=== PATIENT | male | born 1955 | race Caucasian/White ===

== ENCOUNTER 2018-02-16 09:17 | Inpatient (IN) | payer OTHER ==
[2018-02-16 09:56] VITALS: BMI 32.9
--- NOTE | 2018-02-16 13:52 | HP ---
CIWA Score - CIWA Score Nausea/Vomitin Muscle Tremors: 3 Anxiety: 3 Agitation: 3 Paroxysmal Sweats: 2 Orientation: 0-Oriented Tacttile Disturbances: 1-Very Mild Itch/Numbness Auditory Disturbances: 1-Very Mild Visual Disturbances: 0-None Headache: 2-Mild CIWA-Ar Total Score: 18 Admission ROS BHS - HPI Chief Complaint: i need help to stop drinking alcohol Allergies/Adverse Reactions: Allergies Allergy/AdvReac Type Severity Reaction Status Date / Time latex Allergy Severe Rash Verified 02/16/18 11:10 History of Present Illness: this 62 years old male with alcohol dependence,seeking detox,withdrawal symptom, [facility] amb[facility] with cane for 2 months neuropathy longest period of sobriety 9 months nicotine dependence - Ebola screening Have you traveled outside of the country in the last 21 days: No Have you had contact with anyone from an Ebola affected area: No Have you been sick,other than usual withdrawal symptoms: No Do you have a fever: No - Review of Systems Constitutional: Diaphoresis, Loss of Appetite, Malaise, Night Sweats, Changes in sleep, Weakness, Unintentional Wgt. Loss EENT: reports: Nose Congestion Respiratory: reports: No Symptoms reported Cardiac: reports: No Symptoms Reported GI: reports: Diarrhea, Nausea, Vomiting, Abdominal cramping : reports: No Symptoms Reported Musculoskeletal: reports: Back Pain, Muscle Pain Integumentary: reports: Dryness Neuro: reports: Headache, Tremors Endocrine: reports: No Symptoms Reported Hematology: reports: No Symptoms Reported Psychiatric: reports: Agitated, Anxious, Depressed Patient History - Patient Medical History Hx Asthma: No Hx Chronic Obstructive Pulmonary Disease (COPD): No Hx Cancer: No Hx Cardiac Disorders: No Hx Congestive Heart Failure: No Hx Hypertension: No Hx Hypercholesterolemia: No Hx Pacemaker: No HX Cerebrovascular Accident: No Hx Seizures: No Hx Dementia: No Hx Diabetes: No Hx Gastrointestinal Disorders: No Hx Liver Disease: No Hx Genitourinary Disorders: No Hx Sexually Transmitted Disorders: No Hx Renal Disease (ESRD): No Hx Thyroid Disease: No Hx Human Immunodeficiency Virus (HIV): No (last 2017 negative) Hx Hepatitis C: No Hx Depression: Yes Hx Suicide Attempt: No Hx Schizophrenia: No Other Medical History: insomnia,no homicidal,no suicidal - Patient Surgical History Past Surgical History: Yes Hx Neurologic Surgery: No Hx Cataract Extraction: No Hx Cardiac Surgery: No Hx Lung Surgery: No Hx Breast Surgery: No Hx Breast Biopsy: No Hx Abdominal Surgery: No Hx Appendectomy: No Hx Cholecystectomy: No Hx Genitourinary Surgery: No Hx Section: No Hx Orthopedic Surgery: No Other Surgical History: tonsilectomy at age 14 - PPD History Previous Implant?: Yes Documented Results: Negative w/o proof Implanted On Prior [facility] Admission?: No PPD to be Administered?: Yes - Smoking Cessation Smoking history: Current every day smoker Have you smoked in the past 12 months: Yes Aproximately how many cigarettes per day: 20 Hx Chewing Tobacco Use: No Initiated information on smoking cessation: Yes 'Breaking Loose' booklet given: 02/16/18 - Substance & Tx. History Hx Alcohol Use: Yes Hx Substance Use: Yes Substance Use Type: Alcohol, Marijuana Hx Substance Use Treatment: Yes (in 2015 in [place]) - Substances Abused Alcohol-vodka Route: Oral Frequency: Daily Amount used: 3-4 pts. Age of first use: 16 Date of Last Use: 02/15/18 Marijuana Route: Smoking Frequency: Daily Amount used: $10 Age of first use: 23 Date of Last Use: 02/15/18 Family Disease History - Family Disease History Family Disease History: Other: Father (alcohol,) Admission Physical Exam S - Vital Signs Vital Signs: Vital Signs - 24 hr 02/16/18 09:54 Temperature 97.6 F Pulse Rate 112 H Respiratory 20 Rate Blood Pressure 161/120 - Physical General Appearance: Yes: Moderate Distress, Tremorous, Irritable, Sweating, Anxious HEENTM: Yes: Normal ENT Inspection, ALYS[place], Pharynx Normal Respiratory: Yes: Lungs Clear, Normal Breath Sounds, No Respiratory Distress Neck: Yes: Within Normal Limits, Supple, Trachea in good position Breast: Yes: Within Normal Limits Cardiology: Yes: Within Normal Limits, Regular Rhythm, Regular Rate, S1, S2 Abdominal: Yes: Within Normal Limits, Normal Bowel Sounds, Non Tender, Soft Genitourinary: Yes: Within Normal Limits Back: Yes: Within Normal Limits, Normal Inspection, Muscle Spasm Musculoskeletal: Yes: Within Normal Limits, full range of Motion, Back pain, Muscle Pain Extremities: Yes: Tremors, Inflammation Neurological: Yes: Within Normal Limits, Alert, Motor Strength 5/5 Integumentary: Yes: Dry Lymphatic: Yes: Within Normal Limits - Diagnostic (1) Alcohol dependence with uncomplicated withdrawal Current Visit: Yes Status: Acute (2) Cannabis dependence Current Visit: Yes Status: Acute (3) Nicotine dependence Current Visit: Yes Status: Acute (4) Neuropathy Current Visit: Yes Status: Acute (5) Weight loss Current Visit: Yes Status: Acute (6) Use of cane as ambulatory aid Current Visit: Yes Status: Acute Cleared for Admission [facility] - Detox or Rehab [facility] Level of Care: Medically Managed Detox Regimen/Protocol: Librium [facility] Breath Alcohol Content Breath Alcohol Content: 0 Urine Drug Screen - Results Drug Screen Negative: No Urine Drug Screen Results: THC-Marijuana, BILL-Cocaine, BZO-Benzodiazepines
[2018-02-16] MEDS ORDERED: hydrOXYzine PAMOATE 25 MG CAPSULE (FP) PO PRN (14:01)
[2018-02-16] MEDS ORDERED: MAGNESIUM HYDROX 2400MG/30ML ORAL SUSPENSION 30 ML CUP PO PRN (14:01)
[2018-02-16] MEDS ORDERED: chlordiazePOXIDE HCL 25 MG CAPSULE PO PRN (14:01)
[2018-02-16] MEDS ORDERED: IBUPROFEN 400 MG TABLET (FP) PO PRN (14:01)
[2018-02-16] MEDS ORDERED: MENTHOL/PHENOL 1 EACH UD MM PRN (14:01)
[2018-02-16] MEDS ORDERED: ACETAMINOPHEN 325 MG TABLET (FP) PO PRN (14:01)
[2018-02-16] MEDS ORDERED: LOPERAMIDE HCL 2 MG CAPSULE PO PRN (14:01)
[2018-02-16] MEDS ORDERED: NICOTINE POLACRILEX 2 MG GUM BUC PRN (14:01)
[2018-02-16] MEDS ORDERED: MAGNESIUM CITRATE 300 ML BOTTLE PO PRN (14:01)
[2018-02-16] MEDS ORDERED: P-EPHED 60MG/TRIPROLIDI 2.5MG TABLET PO PRN (14:01)
[2018-02-16] MEDS ORDERED: guaiFENesin/D-METHORPHAN HB 10 ML UNIT-DOSE CUPS PO PRN (14:01)
[2018-02-16] MEDS ORDERED: MAG HYDROX/AL HYDROX/SIMETH 30 ML UNIT-DOSE CUP PO PRN (14:01)
[2018-02-16] MEDS ORDERED: chlordiazePOXIDE HCL 25 MG CAPSULE PO ONE (14:30)
[2018-02-16] MEDS: GABAPENTIN 300 MG CAPSULE (FP) PO SCH ×2 (15:34→22:37)
[2018-02-16] MEDS: chlordiazePOXIDE HCL 25 MG CAPSULE PO SCH ×2 (17:15→22:37)
[2018-02-16 19:57] LABS: URINE APPEARANCE CLEAR; URINE COLOR AMBER; URINE GLUCOSE (UA) NEGATIVE (NEGATIVE); URINE KETONE 1+ (NEGATIVE); URINE LEUK ESTERASE NEGATIVE (NEGATIVE); URINE NITRITE NEGATIVE (NEGATIVE); URINE UROBILINOGEN 4.0 E.U/dl mg/dL (0.2-1.0)
[2018-02-16 19:59] LABS: URINE PROTEIN 2+ (NEGATIVE)
[2018-02-16 20:17] LABS: EPI CELLS RARE /HPF (FEW); URINE BACTERIA FEW /hpf (NONE SEEN); URINE MUCUS MANY
[2018-02-16] MEDS: THIAMINE HCL 100 MG TABLET (FP) PO SCH (22:37)
[2018-02-16] MEDS: NAPROXEN 500 MG TABLET (FP) PO SCH (22:37)
[2018-02-16] MEDS ORDERED: cloNIDine HCL 0.1 MG TABLET PO ONE (22:46)
--- NOTE | 2018-02-16 22:47 | PN ---
[facility] Progress Note Note: SMOOTH Kathleen reported patient current BP 189/119 repeat reading 169/109. one time dose clonidine 0.1 mg increase fluids continue to monitor
[2018-02-17] MEDS: chlordiazePOXIDE HCL 25 MG CAPSULE PO SCH ×4 (06:11→22:42)
[2018-02-17] MEDS: GABAPENTIN 300 MG CAPSULE (FP) PO SCH ×3 (06:11→22:42)
[2018-02-17] MEDS: PRENATAL VITAMINS W/ FOLIC ACID TABLET (FP) PO SCH (10:05)
[2018-02-17] MEDS: NAPROXEN 500 MG TABLET (FP) PO SCH ×2 (10:06→22:42)
[2018-02-17 10:35] LABS: CHLORIDE 100 mmol/L (98-107); POTASSIUM 3.6 mmol/L (3.5-5.1); SODIUM 137 mmol/L (136-145)
[2018-02-17 10:38] LABS: HEMATOCRIT 41.1 % (35.4-49); MCH 36.5 pg (25.7-33.7); MCHC 34.1 g/dl (32.0-35.9); MEAN PLT VOLUME 10.3 fl (7.5-11.1); PLATELET COUNT 149 K/MM3 (134-434); RBC 3.84 M/mm3 (4.00-5.60); RDW 15.1 % (11.9-15.9); WHITE BLOOD COUNT 5.6 K/mm3 (4.0-10.0)
[2018-02-17 10:47] LABS: ALBUMIN 4.1 g/dl (3.4-5.0); ALK PHOS 96 U/L (45-117); ANION GAP 11 (8-16); BLOOD UREA NITROGEN 10 mg/dL (7-18); CALCIUM 8.4 mg/dL (8.5-10.1); CO2 26 mmol/L (21-32); CREATININE 0.7 mg/dL (0.7-1.3); GLUCOSE,RANDOM 92 mg/dL (74-106); SGOT/AST 187 U/L (15-37); SGPT/ALT 54 U/L (12-78); TOT PROT 7.5 g/dl (6.4-8.2)
--- NOTE | 2018-02-17 11:10 | CONSULT ---
[facility] Psychiatric Consult - Data Date of interview: 02/17/18 Admission source: [facility] Identifying data: Patient is a 62 year old but , father of three, unemployed, homeless, and supported by [facility]. This is patient's first admission to detox. Pt. admitted to for alcohol and marijuana dependence. Substance Abuse History: - Smoking Cessation. Smoking history: Current every day smoker. Have you smoked in the past 12 months: Yes. Aproximately how many cigarettes per day: 20. Hx Chewing Tobacco Use: No. Initiated information on smoking cessation: Yes. 'Breaking Loose' booklet given: 02/16/18. - Substance & Tx. History. Hx Alcohol Use: Yes. Hx Substance Use: Yes. Substance Use Type : Alcohol, Marijuana. Hx Substance Use Treatment: Yes (in 2015 in [place]). - Substances Abused. Alcohol-vodka. Route: Oral. Frequency: Daily. Amount used: 3-4 pts. Age of first use: 16. Date of Last Use: 02/15/18. Marijuana. Route: Smoking. Frequency: Daily. Amount used: $10. Age of first use: 23. Date of Last Use: 02/15/18 Medical History: tonsilectomy at age 14 Psychiatric History: Patient was in the [facility] in [place] approximately two years ago and was seeing a psychiatrist every month. Patient was then attending the [facility] program in [facility] several months ago and was prescribed trazodone 50mg and gabapentin 300mg TID. Pt. reports medication nonadherence. Pt. requesting to restart trazodone. Pt. denies h/o psychiatric hospitalizations and suicide attempt. Physical/Sexual Abuse/Trauma History: Denies. Mental Status Exam - Mental Status Exam Alert and Oriented to: Time, Place, Person Cognitive Function: Good Patient Appearance: Well Groomed Mood: Sad Affect: Mood Congruent Patient Behavior: Appropriate, Cooperative Speech Pattern: Clear, Appropriate Voice Loudness: Moderately Soft/Quiet Thought Process: Intact, Goal Oriented Thought Disorder: Not Present Hallucinations: Denies Suicidal Ideation: Denies Homicidal Ideation: Denies Insight/Judgement: Poor Sleep: Poorly Appetite: Fair Muscle strength/Tone: Normal Gait/Station: Other (Uses cane to ambulate.) Psychiatric Findings - Problem List ([place] 1, 2,3) (1) Alcohol dependence with uncomplicated withdrawal Current Visit: Yes Status: Acute (2) Cannabis dependence Current Visit: Yes Status: Acute (3) Nicotine dependence Current Visit: Yes Status: Acute (4) Use of cane as ambulatory aid Current Visit: Yes Status: Acute (5) Substance induced mood disorder Current Visit: Yes Status: Suspected (6) Insomnia Current Visit: Yes Status: Acute - Initial Treatment Plan Initial Treatment Plan: Psychoeducation provided. Detoxification in progress. Trazodone 50mg qhs. Benefits and side effects discussed. Pt. made aware of the risk of Priapsim. Verbal consent given. Observation.
--- NOTE | 2018-02-17 11:17 | PN ---
S CIWA - CIWA Score Nausea/Vomitin Muscle Tremors: 3 Anxiety: 3 Agitation: 2 Paroxysmal Sweats: 1-Minimal Palms Moist Orientation: 0-Oriented Tacttile Disturbances: 1-Very Mild Itch/Numbness Auditory Disturbances: 1-Very Mild Visual Disturbances: 0-None Headache: 2-Mild CIWA-Ar Total Score: 16 S Progress Note (SOAP) Subjective: alert,irritable,anxious,interrupted sleep,tremor Objective: 02/17/18 11:12 Vital Signs Temperature 97.7 F 02/17/18 07:10 Pulse Rate 72 02/17/18 07:10 Respiratory Rate 18 02/17/18 07:10 Blood Pressure 131/68 02/17/18 07:10 O2 Sat by Pulse Oximetry (%) ekg nsr,prolong qt 388/461 no chest pain,no sob,no dizziness Laboratory Last Values WBC 5.6 K/mm3 (4.0-10.0) 02/17/18 06:00 RBC 3.84 M/mm3 (4.00-5.60) L 02/17/18 06:00 Hgb 14.0 GM/dL (11.7-16.9) 02/17/18 06:00 Hct 41.1 % (35.4-49) 02/17/18 06:00 MCV 107.0 fl (80-96) H 02/17/18 06:00 MCH 36.5 pg (25.7-33.7) H 02/17/18 06:00 MCHC 34.1 g/dl (32.0-35.9) 02/17/18 06:00 RDW 15.1 % (11.9-15.9) 02/17/18 06:00 Plt Count 149 K/MM3 (134-434) 02/17/18 06:00 MPV 10.3 fl (7.5-11.1) 02/17/18 06:00 Sodium 137 mmol/L (136-145) 02/17/18 06:00 Potassium 3.6 mmol/L (3.5-5.1) 02/17/18 06:00 Chloride 100 mmol/L (98-107) 02/17/18 06:00 Carbon Dioxide 26 mmol/L (21-32) 02/17/18 06:00 Anion Gap 11 (8-16) 02/17/18 06:00 BUN 10 mg/dL (7-18) 02/17/18 06:00 Creatinine 0.7 mg/dL (0.7-1.3) 02/17/18 06:00 Creat Clearance w eGFR > 60 (>60) 02/17/18 06:00 Random Glucose 92 mg/dL (74-106) 02/17/18 06:00 Calcium 8.4 mg/dL (8.5-10.1) L 02/17/18 06:00 Total Bilirubin 2.0 mg/dL (0.2-1.0) H 02/17/18 06:00 AST 187 U/L (15-37) H 02/17/18 06:00 ALT 54 U/L (12-78) 02/17/18 06:00 Alkaline Phosphatase 96 U/L (45-117) 02/17/18 06:00 Total Protein 7.5 g/dl (6.4-8.2) 02/17/18 06:00 Albumin 4.1 g/dl (3.4-5.0) 02/17/18 06:00 Urine Color [place] 02/16/18 17:13 Urine Appearance Clear 02/16/18 17:13 Urine pH 7.0 (5.0-8.0) 02/16/18 17:13 Ur Specific [place] 1.026 (1.001-1.035) 02/16/18 17:13 Urine Protein 2+ (NEGATIVE) H 02/16/18 17:13 Urine Glucose (UA) Negative (NEGATIVE) 02/16/18 17:13 Urine Ketones 1+ (NEGATIVE) H 02/16/18 17:13 Urine Blood 1+ (NEGATIVE) H 02/16/18 17:13 Urine Nitrite Negative (NEGATIVE) 02/16/18 17:13 Urine Bilirubin 2.0 (<2.0 mg/dL) 02/16/18 17:13 Urine Urobilinogen 4.0 e.u/dl mg/dL (0.2-1.0) 02/16/18 17:13 Ur Leukocyte Esterase Negative (NEGATIVE) 02/16/18 17:13 Urine WBC (Auto) 2 /hpf (3-5) 02/16/18 17:13 Urine RBC (Auto) 15 /hpf (0-3) 02/16/18 17:13 Ur Epithelial Cells Rare /HPF (FEW) 02/16/18 17:13 Urine Bacteria Few /hpf (NONE SEEN) 02/16/18 17:13 Urine Mucus Many 02/16/18 17:13 Assessment: 02/17/18 11:16 withdrawal symptom Plan: continue detox,repeat cmp,inr in am,d/c tylenol for elevation of ast,bilirubin
--- NOTE | 2018-02-17 13:17 | EKG ---
Test Reason : Blood Pressure : / mmHG Vent. Rate : 085 BPM Atrial Rate : 085 BPM P-R Int : 130 ms QRS Dur : 080 ms QT Int : 396 ms P-R-T Axes : 018 -44 008 degrees QTc Int : 471 ms SINUS RHYTHM WITH OCCASIONAL PREMATURE VENTRICULAR COMPLEXES LEFT AXIS DEVIATION NONSPECIFIC ST ABNORMALITY ABNORMAL ECG Confirmed by MD HERMINIO, HITESH ([id number]) on 02/17/2018 1:17:12 PM Referred By: Confirmed By:HITESH DURHAM MD
[2018-02-17] MEDS: MELATONIN 5 MG TABLETS PO PRN (22:42)
[2018-02-17] MEDS: traZODone HCL 50 MG TABLET (FP) PO SCH (22:42)
[2018-02-17] MEDS: THIAMINE HCL 100 MG TABLET (FP) PO SCH (22:42)
[2018-02-18] MEDS: GABAPENTIN 300 MG CAPSULE (FP) PO SCH ×3 (06:52→22:34)
[2018-02-18] MEDS: chlordiazePOXIDE HCL 25 MG CAPSULE PO SCH ×2 (06:52→10:29)
[2018-02-18 09:38] LABS: BASO % 1.2 % (0-2.0); EOS % 2.4 % (0-4.5); HEMATOCRIT 39.9 % (35.4-49); HEMOGLOBIN 13.7 GM/dL (11.7-16.9); LYMPH % 25.9 % (8-40); MCH 36.7 pg (25.7-33.7); MCHC 34.2 g/dl (32.0-35.9); MEAN CELL VOLUME 107.4 fl (80-96); MEAN PLT VOLUME 10.1 fl (7.5-11.1); MONO % 13.2 % (3.8-10.2); NEUT % 57.3 % (42.8-82.8); PLATELET COUNT 137 K/MM3 (134-434); RBC 3.72 M/mm3 (4.00-5.60)
[2018-02-18 09:46] LABS: INR 0.99 (0.82-1.09); PROTHROMBIN TIME (PATIENT) 11.2 SEC (9.7-13.0)
[2018-02-18] MEDS: PRENATAL VITAMINS W/ FOLIC ACID TABLET (FP) PO SCH (10:29)
[2018-02-18] MEDS: NAPROXEN 500 MG TABLET (FP) PO SCH ×2 (10:29→22:34)
--- NOTE | 2018-02-18 11:10 | PN ---
S CIWA - CIWA Score Nausea/Vomitin-Mild Nausea/No Vomiting Muscle Tremors: 4-Moderate,w/Arms Extend Anxiety: 4-Mod. Anxious/Guarded Agitation: 4-Moderately Restless Paroxysmal Sweats: 1-Minimal Palms Moist Orientation: 0-Oriented Tacttile Disturbances: 0-None Auditory Disturbances: 0-None Visual Disturbances: 0-None Headache: 0-None Present CIWA-Ar Total Score: 14 BHS Progress Note (SOAP) Subjective: sweat tremor restlessness low energy Objective: 02/18/18 11:09 Vital Signs Temperature 98.2 F 02/18/18 09:46 Pulse Rate 77 02/18/18 09:46 Respiratory Rate 18 02/18/18 09:46 Blood Pressure 103/70 02/18/18 09:46 O2 Sat by Pulse Oximetry (%) Laboratory Last Values WBC 4.0 K/mm3 (4.0-10.0) 02/18/18 08:00 RBC 3.72 M/mm3 (4.00-5.60) L 02/18/18 08:00 Hgb 13.7 GM/dL (11.7-16.9) 02/18/18 08:00 Hct 39.9 % (35.4-49) 02/18/18 08:00 MCV 107.4 fl (80-96) H 02/18/18 08:00 MCH 36.7 pg (25.7-33.7) H 02/18/18 08:00 MCHC 34.2 g/dl (32.0-35.9) 02/18/18 08:00 RDW 15.0 % (11.9-15.9) 02/18/18 08:00 Plt Count 137 K/MM3 (134-434) 02/18/18 08:00 MPV 10.1 fl (7.5-11.1) 02/18/18 08:00 Absolute Neuts (auto) 2.3 # 02/18/18 08:00 Neutrophils % 57.3 % (42.8-82.8) 02/18/18 08:00 Lymphocytes % 25.9 % (8-40) 02/18/18 08:00 Monocytes % 13.2 % (3.8-10.2) H 02/18/18 08:00 Eosinophils % 2.4 % (0-4.5) 02/18/18 08:00 Basophils % 1.2 % (0-2.0) 02/18/18 08:00 Nucleated RBC % 0 % (0-0) 02/18/18 08:00 PT with INR 11.20 SEC (9.7-13.0) 02/18/18 08:00 INR 0.99 (0.82-1.09) 02/18/18 08:00 Sodium 137 mmol/L (136-145) 02/17/18 06:00 Potassium 3.6 mmol/L (3.5-5.1) 02/17/18 06:00 Chloride 100 mmol/L (98-107) 02/17/18 06:00 Carbon Dioxide 26 mmol/L (21-32) 02/17/18 06:00 Anion Gap 11 (8-16) 02/17/18 06:00 BUN 10 mg/dL (7-18) 02/17/18 06:00 Creatinine 0.7 mg/dL (0.7-1.3) 02/17/18 06:00 Creat Clearance w eGFR > 60 (>60) 02/17/18 06:00 Random Glucose 92 mg/dL (74-106) 02/17/18 06:00 Calcium 8.4 mg/dL (8.5-10.1) L 02/17/18 06:00 Total Bilirubin 2.0 mg/dL (0.2-1.0) H 02/17/18 06:00 AST 187 U/L (15-37) H 02/17/18 06:00 ALT 54 U/L (12-78) 02/17/18 06:00 Alkaline Phosphatase 96 U/L (45-117) 02/17/18 06:00 Total Protein 7.5 g/dl (6.4-8.2) 02/17/18 06:00 Albumin 4.1 g/dl (3.4-5.0) 02/17/18 06:00 Urine Color [place] 02/16/18 17:13 Urine Appearance Clear 02/16/18 17:13 Urine pH 7.0 (5.0-8.0) 02/16/18 17:13 Ur Specific [place] 1.026 (1.001-1.035) 02/16/18 17:13 Urine Protein 2+ (NEGATIVE) H 02/16/18 17:13 Urine Glucose (UA) Negative (NEGATIVE) 02/16/18 17:13 Urine Ketones 1+ (NEGATIVE) H 02/16/18 17:13 Urine Blood 1+ (NEGATIVE) H 02/16/18 17:13 Urine Nitrite Negative (NEGATIVE) 02/16/18 17:13 Urine Bilirubin 2.0 (<2.0 mg/dL) 02/16/18 17:13 Urine Urobilinogen 4.0 e.u/dl mg/dL (0.2-1.0) 02/16/18 17:13 Ur Leukocyte Esterase Negative (NEGATIVE) 02/16/18 17:13 Urine WBC (Auto) 2 /hpf (3-5) 02/16/18 17:13 Urine RBC (Auto) 15 /hpf (0-3) 02/16/18 17:13 Ur Epithelial Cells Rare /HPF (FEW) 02/16/18 17:13 Urine Bacteria Few /hpf (NONE SEEN) 02/16/18 17:13 Urine Mucus Many 02/16/18 17:13 RPR Titer Nonreactive (NONREACTIVE) 02/17/18 06:00 lab noted Assessment: 02/18/18 11:10 withdrawal sx Plan: continue detox
[2018-02-18] MEDS ORDERED: BACLOFEN 10 MG TABLET (FP) PO ONE (12:46)
[2018-02-18 14:12] LABS: ANISOCYTOSIS 1+; MACROCYTOSIS 0; PLATELET ESTIMATE DECREASED
[2018-02-18] MEDS: BACLOFEN 10 MG TABLET (FP) PO SCH ×2 (14:15→22:33)
[2018-02-18] MEDS: chlordiazePOXIDE 5 MG CAPSULE PO SCH ×2 (17:31→22:33)
[2018-02-18] MEDS: MELATONIN 5 MG TABLETS PO PRN (22:34)
[2018-02-18] MEDS: traZODone HCL 50 MG TABLET (FP) PO SCH (22:34)
[2018-02-18] MEDS: THIAMINE HCL 100 MG TABLET (FP) PO SCH (22:34)
[2018-02-19] MEDS: chlordiazePOXIDE 5 MG CAPSULE PO SCH ×2 (05:33→10:41)
[2018-02-19] MEDS: GABAPENTIN 300 MG CAPSULE (FP) PO SCH ×3 (05:33→22:39)
[2018-02-19] MEDS: BACLOFEN 10 MG TABLET (FP) PO SCH ×3 (05:34→22:39)
--- NOTE | 2018-02-19 10:28 | PN ---
[facility] Progress Note (SOAP) Subjective: feeling better no tremor sleep better at night no pain ambulate with cane Objective: 02/19/18 10:29 Vital Signs Temperature 97.7 F 02/19/18 09:18 Pulse Rate 66 02/19/18 09:18 Respiratory Rate 18 02/19/18 09:18 Blood Pressure 125/68 02/19/18 09:18 O2 Sat by Pulse Oximetry (%) Laboratory Last Values WBC 4.0 K/mm3 (4.0-10.0) 02/18/18 08:00 RBC 3.72 M/mm3 (4.00-5.60) L 02/18/18 08:00 Hgb 13.7 GM/dL (11.7-16.9) 02/18/18 08:00 Hct 39.9 % (35.4-49) 02/18/18 08:00 MCV 107.4 fl (80-96) H 02/18/18 08:00 MCH 36.7 pg (25.7-33.7) H 02/18/18 08:00 MCHC 34.2 g/dl (32.0-35.9) 02/18/18 08:00 RDW 15.0 % (11.9-15.9) 02/18/18 08:00 Plt Count 137 K/MM3 (134-434) 02/18/18 08:00 MPV 10.1 fl (7.5-11.1) 02/18/18 08:00 Absolute Neuts (auto) 2.3 # 02/18/18 08:00 Neutrophils % 57.3 % (42.8-82.8) 02/18/18 08:00 Lymphocytes % 25.9 % (8-40) 02/18/18 08:00 Monocytes % 13.2 % (3.8-10.2) H 02/18/18 08:00 Eosinophils % 2.4 % (0-4.5) 02/18/18 08:00 Basophils % 1.2 % (0-2.0) 02/18/18 08:00 Nucleated RBC % 0 % (0-0) 02/18/18 08:00 Hypochromia 0 02/18/18 08:00 Platelet Estimate Decreased 02/18/18 08:00 Polychromasia 0 02/18/18 08:00 Poikilocytosis 0 02/18/18 08:00 Anisocytosis 1+ 02/18/18 08:00 Microcytosis 1+ 02/18/18 08:00 Macrocytosis 0 02/18/18 08:00 PT with INR 11.20 SEC (9.7-13.0) 02/18/18 08:00 INR 0.99 (0.82-1.09) 02/18/18 08:00 Sodium 137 mmol/L (136-145) 02/17/18 06:00 Potassium 3.6 mmol/L (3.5-5.1) 02/17/18 06:00 Chloride 100 mmol/L (98-107) 02/17/18 06:00 Carbon Dioxide 26 mmol/L (21-32) 02/17/18 06:00 Anion Gap 11 (8-16) 02/17/18 06:00 BUN 10 mg/dL (7-18) 02/17/18 06:00 Creatinine 0.7 mg/dL (0.7-1.3) 02/17/18 06:00 Creat Clearance w eGFR > 60 (>60) 02/17/18 06:00 Random Glucose 92 mg/dL (74-106) 02/17/18 06:00 Calcium 8.4 mg/dL (8.5-10.1) L 02/17/18 06:00 Total Bilirubin 2.0 mg/dL (0.2-1.0) H 02/17/18 06:00 AST 187 U/L (15-37) H 02/17/18 06:00 ALT 54 U/L (12-78) 02/17/18 06:00 Alkaline Phosphatase 96 U/L (45-117) 02/17/18 06:00 Total Protein 7.5 g/dl (6.4-8.2) 02/17/18 06:00 Albumin 4.1 g/dl (3.4-5.0) 02/17/18 06:00 Urine Color [place] 02/16/18 17:13 Urine Appearance Clear 02/16/18 17:13 Urine pH 7.0 (5.0-8.0) 02/16/18 17:13 Ur Specific [place] 1.026 (1.001-1.035) 02/16/18 17:13 Urine Protein 2+ (NEGATIVE) H 02/16/18 17:13 Urine Glucose (UA) Negative (NEGATIVE) 02/16/18 17:13 Urine Ketones 1+ (NEGATIVE) H 02/16/18 17:13 Urine Blood 1+ (NEGATIVE) H 02/16/18 17:13 Urine Nitrite Negative (NEGATIVE) 02/16/18 17:13 Urine Bilirubin 2.0 (<2.0 mg/dL) 02/16/18 17:13 Urine Urobilinogen 4.0 e.u/dl mg/dL (0.2-1.0) 02/16/18 17:13 Ur Leukocyte Esterase Negative (NEGATIVE) 02/16/18 17:13 Urine WBC (Auto) 2 /hpf (3-5) 02/16/18 17:13 Urine RBC (Auto) 15 /hpf (0-3) 02/16/18 17:13 Ur Epithelial Cells Rare /HPF (FEW) 02/16/18 17:13 Urine Bacteria Few /hpf (NONE SEEN) 02/16/18 17:13 Urine Mucus Many 02/16/18 17:13 RPR Titer Nonreactive (NONREACTIVE) 02/17/18 06:00 lab noted 02/19/18 10:32 ast repeat pending Assessment: 02/19/18 10:32 mild withdrawal sx Plan: medically supervised detox
[2018-02-19] MEDS: PRENATAL VITAMINS W/ FOLIC ACID TABLET (FP) PO SCH (10:41)
[2018-02-19] MEDS: NAPROXEN 500 MG TABLET (FP) PO SCH ×2 (10:41→22:39)
[2018-02-19] MEDS: NICOTINE 21 MG/24 HOURS TOPICAL PATCH TD SCH (15:07)
[2018-02-19] MEDS: chlordiazePOXIDE HCL 10 MG CAPSULE PO SCH ×2 (17:13→22:39)
[2018-02-19] MEDS: traZODone HCL 50 MG TABLET (FP) PO SCH (22:39)
[2018-02-19] MEDS: THIAMINE HCL 100 MG TABLET (FP) PO SCH (22:40)
[2018-02-20] MEDS: chlordiazePOXIDE HCL 10 MG CAPSULE PO SCH (06:00)
[2018-02-20] MEDS: BACLOFEN 10 MG TABLET (FP) PO SCH (06:00)
[2018-02-20] MEDS: GABAPENTIN 300 MG CAPSULE (FP) PO SCH (06:00)
--- NOTE | 2018-02-20 09:05 | PN ---
S Progress Note (SOAP) Subjective: alert,no complaint Objective: 02/20/18 09:03 Vital Signs Temperature 97.5 F L 02/20/18 06:09 Pulse Rate 82 02/20/18 06:09 Respiratory Rate 17 02/20/18 06:09 Blood Pressure 132/87 02/20/18 06:09 O2 Sat by Pulse Oximetry (%) detox completed,no withdrawal symptom Assessment: 02/20/18 09:03 no withdrawal symptom Plan: discharge today,follow up with after care program as arrangement
--- NOTE | 2018-02-20 09:08 | DS ---
[facility] Detox Discharge Summary Admission Date: 02/16/18 Discharge Date: 02/20/18 - History Present History: Alcohol Dependence, Cannabis Dependence Additional Comments: follow up with after care program as arrangement Pertinent Past History: neuropathy weight loss use cane as ambulatory aid - Physical Exam Results Vital Signs: Vital Signs Temperature 97.5 F L 02/20/18 06:09 Pulse Rate 82 02/20/18 06:09 Respiratory Rate 17 02/20/18 06:09 Blood Pressure 132/87 02/20/18 06:09 O2 Sat by Pulse Oximetry (%) - Treatment Hospital Course: Detox Protocol Followed, Detoxed Safely, Responded well, Discharged Condition Good, Rehab Referral Accepted Patient has Accepted a Rehab Referral to: [facility] - Medication Discharge Medications: Ambulatory Orders Naproxen [Naprosyn -] 500 mg PO BID 02/16/18 Trazodone HCl 50 mg PO HS 02/17/18 Gabapentin [Neurontin -] 300 mg PO Q8H #90 capsule 02/19/18 - Diagnosis (1) Alcohol dependence with uncomplicated withdrawal Current Visit: Yes Status: Acute (2) Cannabis dependence Current Visit: Yes Status: Acute (3) Nicotine dependence Current Visit: Yes Status: Acute (4) Neuropathy Current Visit: Yes Status: Acute (5) Weight loss Current Visit: Yes Status: Acute (6) Use of cane as ambulatory aid Current Visit: Yes Status: Acute - AMA Did Patient Leave Against Medical Advice: No
[2018-02-20] MEDS: PRENATAL VITAMINS W/ FOLIC ACID TABLET (FP) PO SCH (09:36)
[2018-02-20] MEDS: NAPROXEN 500 MG TABLET (FP) PO SCH (09:36)
[2018-02-20] MEDS: NICOTINE 21 MG/24 HOURS TOPICAL PATCH TD SCH (10:27)
[2018-02-20 11:16] VITALS: BP 139/73; PULSE 107; TEMP 96.1
== END 2018-02-20 10:49 | disposition home or self-care (01) | DRG 775 ==
LOC: YASAS 09:17 → Y6N 13:58
PROVIDERS: ADMIT Surgery; ATTEND Surgery
PROC: HZ2ZZZZ Detoxification Services for Substance Abuse Treatment (ICD-10-PCS; principal; 2018-02-16)
DX: F10.230 Alcohol dependence with withdrawal, uncomplicated (principal); F12.20 Cannabis dependence, uncomplicated; F17.210 Nicotine dependence, cigarettes, uncomplicated; F19.24 Other psychoactive substance dependence with psychoactive substance-induced mood disorder; G47.00 Insomnia, unspecified; G62.9 Polyneuropathy, unspecified; R63.4 Abnormal weight loss; Z68.32 Body mass index [BMI] 32.0-32.9, adult; Z99.89 Dependence on other enabling machines and devices; Z91.040 Latex allergy status
CPT/HCPCS: 36415; 80053; 81003; 81015; 85025; 85027; 85610; 86593; 93005; 93010; J0475; J0735

== ENCOUNTER 2019-02-18 09:47 | Inpatient (IN) | payer BC ==
[2019-02-18 10:55] VITALS: BMI 22.3
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
[2019-02-18] MEDS ORDERED: IBUPROFEN 400 MG TABLET (FP) PO PRN (12:43)
[2019-02-18] MEDS ORDERED: MAGNESIUM CITRATE 300 ML BOTTLE PO PRN (12:43)
[2019-02-18] MEDS ORDERED: hydrOXYzine PAMOATE 25 MG CAPSULE (FP) PO PRN (12:43)
[2019-02-18] MEDS ORDERED: MENTHOL/PHENOL 1 EACH UD MM PRN (12:43)
[2019-02-18] MEDS ORDERED: chlordiazePOXIDE HCL 25 MG CAPSULE PO PRN (12:43)
[2019-02-18] MEDS ORDERED: BISMUTH SUBSALICYLATE 524 MG/30 ML UD PO PRN (12:43)
[2019-02-18] MEDS ORDERED: chlordiazePOXIDE HCL 25 MG CAPSULE PO ONE (12:43)
[2019-02-18] MEDS ORDERED: MAGNESIUM HYDROX 2400MG/30ML ORAL SUSPENSION 30 ML CUP PO PRN (12:43)
[2019-02-18] MEDS ORDERED: MAG HYDROX/AL HYDROX/SIMETH 30 ML UNIT-DOSE CUP PO PRN (12:43)
[2019-02-18] MEDS ORDERED: NICOTINE POLACRILEX 2 MG GUM BUC PRN (12:43)
[2019-02-18] MEDS ORDERED: ONDANSETRON *ODT* 4 MG TABLET SL PRN (12:43)
[2019-02-18] MEDS ORDERED: ACETAMINOPHEN 325 MG TABLET (FP) PO PRN (12:43)
[2019-02-18] MEDS: ACETAMINOPHEN 325 MG TABLET (FP) PO PRN (14:15)
[2019-02-18] MEDS: chlordiazePOXIDE HCL 25 MG CAPSULE PO SCH ×2 (17:04→22:26)
[2019-02-18] MEDS: THIAMINE HCL 100 MG TABLET (FP) PO SCH (22:26)
[2019-02-18] MEDS: MELATONIN 5 MG TABLETS PO PRN (22:27)
[2019-02-19] MEDS: chlordiazePOXIDE HCL 25 MG CAPSULE PO SCH ×4 (07:00→22:16)
[2019-02-19 10:16] LABS: HEMATOCRIT 39.4 % (35.4-49); HEMOGLOBIN 13.5 GM/dL (11.7-16.9); MCH 36.8 pg (25.7-33.7); MCHC 34.3 g/dl (32.0-35.9); MEAN CELL VOLUME 107.2 fl (80-96); MEAN PLT VOLUME 9.9 fl (7.5-11.1); PLATELET COUNT 122 K/MM3 (134-434); RBC 3.67 M/mm3 (4.00-5.60); RDW 15.6 % (11.9-15.9); WHITE BLOOD COUNT 4.8 K/mm3 (4.0-10.0)
[2019-02-19] MEDS: PRENATAL VITAMINS W/ FOLIC ACID TABLET (FP) PO SCH (10:25)
[2019-02-19] MEDS: ACETAMINOPHEN 325 MG TABLET (FP) PO PRN ×2 (10:26→20:07)
[2019-02-19 10:35] LABS: ALBUMIN 3.5 g/dl (3.4-5.0); BILIRUBIN,TOTAL 1.9 mg/dL (0.2-1); BLOOD UREA NITROGEN 10.3 mg/dL (7-18); CALCIUM 8.1 mg/dL (8.5-10.1); CREATININE 0.6 mg/dL (0.55-1.3); POTASSIUM 3.3 mmol/L (3.5-5.1); TOT PROT 6.8 g/dl (6.4-8.2)
--- NOTE | 2019-02-19 13:37 | PN ---
S CIWA - CIWA Score Nausea/Vomitin Muscle Tremors: 2 Anxiety: 2 Agitation: 2 Paroxysmal Sweats: No Perspiration Orientation: 0-Oriented Tacttile Disturbances: 1-Very Mild Itch/Numbness Auditory Disturbances: 1-Very Mild Visual Disturbances: 0-None Headache: 2-Mild CIWA-Ar Total Score: 12 BHS Progress Note (SOAP) Subjective: alert,irritable,anxious,interrupted sleep,tremor Objective: 02/19/19 13:32 Vital Signs Temperature 98.2 F 02/19/19 09:15 Pulse Rate 72 02/19/19 09:15 Respiratory Rate 18 02/19/19 09:15 Blood Pressure 118/76 02/19/19 09:15 O2 Sat by Pulse Oximetry (%) Laboratory Last Values WBC 4.8 K/mm3 (4.0-10.0) 02/19/19 07:50 RBC 3.67 M/mm3 (4.00-5.60) L 02/19/19 07:50 Hgb 13.5 GM/dL (11.7-16.9) 02/19/19 07:50 Hct 39.4 % (35.4-49) 02/19/19 07:50 MCV 107.2 fl (80-96) H 02/19/19 07:50 MCH 36.8 pg (25.7-33.7) H 02/19/19 07:50 MCHC 34.3 g/dl (32.0-35.9) 02/19/19 07:50 RDW 15.6 % (11.9-15.9) 02/19/19 07:50 Plt Count 122 K/MM3 (134-434) L 02/19/19 07:50 MPV 9.9 fl (7.5-11.1) 02/19/19 07:50 Sodium 141 mmol/L (136-145) 02/19/19 07:50 Potassium 3.3 mmol/L (3.5-5.1) L 02/19/19 07:50 Chloride 104 mmol/L (98-107) 02/19/19 07:50 Carbon Dioxide 27 mmol/L (21-32) 02/19/19 07:50 Anion Gap 10 MMOL/L (8-16) 02/19/19 07:50 BUN 10.3 mg/dL (7-18) 02/19/19 07:50 Creatinine 0.6 mg/dL (0.55-1.3) 02/19/19 07:50 Est GFR (CKD-EPI)AfAm 125.77 02/19/19 07:50 Est GFR (CKD-EPI)NonAf 108.52 02/19/19 07:50 Random Glucose 87 mg/dL (74-106) 02/19/19 07:50 Calcium 8.1 mg/dL (8.5-10.1) L 02/19/19 07:50 Total Bilirubin 1.9 mg/dL (0.2-1) H 02/19/19 07:50 AST 94 U/L (15-37) H 02/19/19 07:50 ALT 38 U/L (13-61) 02/19/19 07:50 Alkaline Phosphatase 74 U/L (45-117) 02/19/19 07:50 Total Protein 6.8 g/dl (6.4-8.2) 02/19/19 07:50 Albumin 3.5 g/dl (3.4-5.0) 02/19/19 07:50 RPR Titer Nonreactive (NONREACTIVE) 02/19/19 07:50 HIV 1&2 Antibody Screen Negative 02/19/19 07:50 HIV P24 Antigen Negative 02/19/19 07:50 Assessment: 02/19/19 13:34 withdrawal symptom Plan: continue detox,k is 3.3,kdur 20 meq po now and daily,repeat cmp in am
[2019-02-19] MEDS ORDERED: POTASSIUM CHLORIDE TABS 20 MEQ TABLET.ER (FP) PO ONE (14:15)
[2019-02-19] MEDS: MELATONIN 5 MG TABLETS PO PRN (22:16)
[2019-02-19] MEDS: THIAMINE HCL 100 MG TABLET (FP) PO SCH (22:16)
[2019-02-20] MEDS: chlordiazePOXIDE HCL 25 MG CAPSULE PO SCH ×4 (07:08→22:51)
[2019-02-20] MEDS ORDERED: POTASSIUM CHLORIDE TABS 20 MEQ TABLET.ER (FP) PO SCH (10:00)
[2019-02-20] MEDS: PRENATAL VITAMINS W/ FOLIC ACID TABLET (FP) PO SCH (10:45)
[2019-02-20 11:29] LABS: BLOOD UREA NITROGEN 9.8 mg/dL (7-18); CALCIUM 8.9 mg/dL (8.5-10.1); CREATININE 0.7 mg/dL (0.55-1.3); POTASSIUM 3.2 mmol/L (3.5-5.1); TOT PROT 7.3 g/dl (6.4-8.2)
--- NOTE | 2019-02-20 13:22 | PN ---
S CIWA - CIWA Score Nausea/Vomitin-No Nausea/No Vomiting Muscle Tremors: 2 Anxiety: 2 Agitation: 1-Slight > Activity Paroxysmal Sweats: 2 Orientation: 2-Disoriented Date<2 days Tacttile Disturbances: 0-None Auditory Disturbances: 0-None Visual Disturbances: 0-None Headache: 3-Moderate CIWA-Ar Total Score: 12 BHS Progress Note (SOAP) Subjective: Anxious, Tremors, Headache, Sweating. Objective: PATIENT A & O X 2 (UNCERTAIN ABOUT CURRENT DAY / DATE). PATIENT OBSERVED AMBULATING ON UNIT UNASSISTED. IN NO ACUTE DISTRESS. 02/20/19 13:18 Vital Signs Temperature 98.5 F 02/20/19 09:20 Pulse Rate 93 H 02/20/19 09:20 Respiratory Rate 18 02/20/19 09:20 Blood Pressure 128/91 02/20/19 09:20 O2 Sat by Pulse Oximetry (%) Laboratory Tests 02/19/19 02/19/19 02/19/19 07:50 07:50 07:50 WBC 4.8 RBC 3.67 L Hgb 13.5 Hct 39.4 MCV 107.2 H MCH 36.8 H MCHC 34.3 RDW 15.6 Plt Count 122 L MPV 9.9 Sodium 141 Potassium 3.3 L Chloride 104 Carbon Dioxide 27 Anion Gap 10 BUN 10.3 Creatinine 0.6 Est GFR (CKD-EPI)AfAm 125.77 Est GFR (CKD-EPI)NonAf 108.52 Random Glucose 87 Calcium 8.1 L Total Bilirubin 1.9 H AST 94 H ALT 38 Alkaline Phosphatase 74 Total Protein 6.8 Albumin 3.5 RPR Titer HIV 1&2 Antibody Screen Negative HIV P24 Antigen Negative 02/19/19 02/20/19 07:50 08:00 WBC RBC Hgb Hct MCV MCH MCHC RDW Plt Count MPV Sodium 140 Potassium 3.2 L Chloride 106 Carbon Dioxide 25 Anion Gap 9 BUN 9.8 Creatinine 0.7 Est GFR (CKD-EPI)AfAm 118.05 Est GFR (CKD-EPI)NonAf 101.85 Random Glucose 96 Calcium 8.9 Total Bilirubin 1.0 AST 74 H ALT 36 Alkaline Phosphatase 78 Total Protein 7.3 Albumin 4.0 RPR Titer Nonreactive HIV 1&2 Antibody Screen HIV P24 Antigen LABS NOTED. RESULTS OF REPEAT CMP NOTED. CA LEVEL NOW NOTED TO BE WITHIN NORMAL RANGE. K LEVEL STILL NOTED TO BE BELOW NORMAL RANGE. 02/20/19 13:21 Assessment: 02/20/19 13:18 WITHDRAWAL SYMPTOMS. THROMBOCYTOPENIA. HYPOAKLEMIA. 02/20/19 13:22 Plan: CONTINUE DETOX. INCREASE K-DUR TO 20 MEQ PO BID. RE-CHECK K LEVEL AGAIN TOMORROW AM.
[2019-02-20] MEDS: POTASSIUM CHLORIDE TABS 20 MEQ TABLET.ER (FP) PO SCH (18:25)
[2019-02-20] MEDS: THIAMINE HCL 100 MG TABLET (FP) PO SCH (22:51)
[2019-02-20] MEDS: MELATONIN 5 MG TABLETS PO PRN (22:52)
[2019-02-21] MEDS ORDERED: chlordiazePOXIDE HCL 10 MG CAPSULE PO PRN
[2019-02-21] MEDS: chlordiazePOXIDE HCL 10 MG CAPSULE PO SCH ×2 (06:28→10:09)
[2019-02-21 09:26] VITALS: BP 121/84; PULSE 77; TEMP 97.3
[2019-02-21] MEDS: POTASSIUM CHLORIDE TABS 20 MEQ TABLET.ER (FP) PO SCH (10:09)
[2019-02-21] MEDS: PRENATAL VITAMINS W/ FOLIC ACID TABLET (FP) PO SCH (10:09)
--- NOTE | 2019-02-21 10:10 | PN ---
S CIWA - CIWA Score Nausea/Vomitin-Mild Nausea/No Vomiting Muscle Tremors: 2 Anxiety: 2 Agitation: 2 Paroxysmal Sweats: 1-Minimal Palms Moist Orientation: 0-Oriented Tacttile Disturbances: 1-Very Mild Itch/Numbness Auditory Disturbances: 0-None Visual Disturbances: 0-None Headache: 0-None Present CIWA-Ar Total Score: 9 BHS Progress Note (SOAP) Subjective: feeling ok today ambulating on hallway social with peers in day room mild tremor less anxiousness encourage discuss aftercare at [facility] Objective: 02/21/19 10:10 Vital Signs Temperature 97.3 F L 02/21/19 09:26 Pulse Rate 77 02/21/19 09:26 Respiratory Rate 18 02/21/19 09:26 Blood Pressure 121/84 02/21/19 09:26 O2 Sat by Pulse Oximetry (%) Laboratory Last Values WBC 4.8 K/mm3 (4.0-10.0) 02/19/19 07:50 RBC 3.67 M/mm3 (4.00-5.60) L 02/19/19 07:50 Hgb 13.5 GM/dL (11.7-16.9) 02/19/19 07:50 Hct 39.4 % (35.4-49) 02/19/19 07:50 MCV 107.2 fl (80-96) H 02/19/19 07:50 MCH 36.8 pg (25.7-33.7) H 02/19/19 07:50 MCHC 34.3 g/dl (32.0-35.9) 02/19/19 07:50 RDW 15.6 % (11.9-15.9) 02/19/19 07:50 Plt Count 122 K/MM3 (134-434) L 02/19/19 07:50 MPV 9.9 fl (7.5-11.1) 02/19/19 07:50 Sodium 140 mmol/L (136-145) 02/20/19 08:00 Potassium 3.2 mmol/L (3.5-5.1) L 02/20/19 08:00 Chloride 106 mmol/L (98-107) 02/20/19 08:00 Carbon Dioxide 25 mmol/L (21-32) 02/20/19 08:00 Anion Gap 9 MMOL/L (8-16) 02/20/19 08:00 BUN 9.8 mg/dL (7-18) 02/20/19 08:00 Creatinine 0.7 mg/dL (0.55-1.3) 02/20/19 08:00 Est GFR (CKD-EPI)AfAm 118.05 02/20/19 08:00 Est GFR (CKD-EPI)NonAf 101.85 02/20/19 08:00 Random Glucose 96 mg/dL (74-106) 02/20/19 08:00 Calcium 8.9 mg/dL (8.5-10.1) 02/20/19 08:00 Total Bilirubin 1.0 mg/dL (0.2-1) 02/20/19 08:00 AST 74 U/L (15-37) H 02/20/19 08:00 ALT 36 U/L (13-61) 02/20/19 08:00 Alkaline Phosphatase 78 U/L (45-117) 02/20/19 08:00 Total Protein 7.3 g/dl (6.4-8.2) 02/20/19 08:00 Albumin 4.0 g/dl (3.4-5.0) 02/20/19 08:00 RPR Titer Nonreactive (NONREACTIVE) 02/19/19 07:50 HIV 1&2 Antibody Screen Negative 02/19/19 07:50 HIV P24 Antigen Negative 02/19/19 07:50 TB Test (QFT) Nil 0.04 IU/mL (.) 02/18/19 06:00 TB Test (QFT) Mitogen 5.39 IU/mL (.) 02/18/19 06:00 TB Test (QFT) Antigen 0.03 IU/mL (.) 02/18/19 06:00 TB Test (QFT) Negative (Negative) 02/18/19 06:00 TB Positive Criteria (.) 02/18/19 06:00 lab noted low K+ 02/21/19 10:11K+ supplement 20 meq bid K+ repeat pending 02/21/19 10:12 Assessment: 02/21/19 10:12 alcohol withdrawal sx Plan: continue alcohol detox continue K+ supplement
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
[2019-02-22] MEDS ORDERED: chlordiazePOXIDE HCL 10 MG CAPSULE PO SCH (05:00)
[2019-02-23] MEDS ORDERED: chlordiazePOXIDE HCL 10 MG CAPSULE PO ONE (05:00)
== END 2019-02-21 12:25 | disposition home or self-care (01) | DRG 775 ==
LOC: YASAS 09:47 → Y3N 12:53
PROVIDERS: ADMIT Surgery; ATTEND Surgery
PROC: HZ2ZZZZ Detoxification Services for Substance Abuse Treatment (ICD-10-PCS; principal; 2019-02-18)
DX: F10.230 Alcohol dependence with withdrawal, uncomplicated (principal); F12.20 Cannabis dependence, uncomplicated; F17.213 Nicotine dependence, cigarettes, with withdrawal; F19.24 Other psychoactive substance dependence with psychoactive substance-induced mood disorder; D69.6 Thrombocytopenia, unspecified; E87.6 Hypokalemia; R63.4 Abnormal weight loss; Z68.22 Body mass index [BMI] 22.0-22.9, adult; Z99.89 Dependence on other enabling machines and devices; S05.12XA Contusion of eyeball and orbital tissues, left eye, initial encounter; Y04.0XXA Assault by unarmed brawl or fight, initial encounter; Y93.89 Activity, other specified; Y92.830 Public park as the place of occurrence of the external cause; Y99.8 Other external cause status
CPT/HCPCS: 36415; 80053; 84132; 85027; 86480; 86593; 87389

== ENCOUNTER 2019-07-19 15:56 | Inpatient (IN) | payer BC ==
[2019-07-19 17:58] VITALS: BMI 24.4
--- NOTE | 2019-07-19 20:44 | HP ---
CIWA Score - Admission Criteria OASAS Guidelines: Admission for Medically Managed Detox: Requires at least one of the followin. CIWA greater than 12 2. Seizures within the past 24 hours 3. Delirium tremens within the past 24 hours 4. Hallucinations within the past 24 hours 5. Acute intervention needed for co occurring medical disorder 6. Acute intervention needed for co occurring psychiatric disorder 7. Severe withdrawal that cannot be handled at a lower level of care (continued vomiting, continued diarrhea, abnormal vital signs) requiring intravenous medication and/or fluids 8. Admitting History and Physical - Smoking History Smoking history: Current every day smoker Have you smoked in the past 12 months: Yes Aproximately how many cigarettes per day: 20 - Alcohol/Substance Use Hx Alcohol Use: Yes Admission ROS [facility] Chief Complaint: Seeking admission to Rehab. Allergies/Adverse Reactions: Allergies Allergy/AdvReac Type Severity Reaction Status Date / Time latex Allergy Severe Rash Verified 07/19/19 17:42 History of Present Illness: 64 years old male with a long history of alcohol dependence is seeking admission to Rehab. Patient was discharged from [facility] where he sought medical help status post a fall secondary to alcohol intoxication. He reports history of low back pain, osteoarthritis, anxiety and depression. He reports that he attempted suicide 3 days ago, a neighbor saw him and called an ambulance which took him to [facility]. He denies suicidal ideation at this time - Ebola screening Have you traveled outside of the country in the last 21 days: No Have you had contact with anyone from an Ebola affected area: No - Review of Systems Constitutional: No Symptoms Reported EENT: reports: No Symptoms Reported Respiratory: reports: No Symptoms reported Cardiac: reports: No Symptoms Reported GI: reports: No Symptoms Reported : reports: No Symptoms Reported Musculoskeletal: reports: No Symptoms Reported Integumentary: reports: No Symptoms Reported Neuro: reports: No Symptoms reported Endocrine: reports: No Symptoms Reported Hematology: reports: No Symptoms Reported Psychiatric: reports: Mood/Affect Appropiate, Orientated x3 Other Systems: Reviewed and Negative Patient History - Patient Medical History Hx Anemia: No Hx Asthma: No Hx Chronic Obstructive Pulmonary Disease (COPD): No Hx Cancer: No Hx Cardiac Disorders: No Hx Congestive Heart Failure: No Hx Hypertension: No Hx Hypercholesterolemia: No Hx Pacemaker: No HX Cerebrovascular Accident: No Hx Seizures: No Hx Dementia: No Hx Diabetes: No Hx Gastrointestinal Disorders: No Hx Liver Disease: No Hx Genitourinary Disorders: No Hx Sexually Transmitted Disorders: No Hx Renal Disease (ESRD): No Hx Thyroid Disease: No Hx Human Immunodeficiency Virus (HIV): No (last 2017 negative) Hx Hepatitis C: No Hx Depression: Yes (Trazodone, Esitalopram) Hx Suicide Attempt: Yes (Attempt 3 days ago. Denies suicidal ideation at this time) Hx Schizophrenia: No Other Medical History: Anxiety-Trazodone, Esitalopram; Osteoarthritis, low back pain - Gabapentin - Patient Surgical History Past Surgical History: Yes Hx Neurologic Surgery: No Hx Cataract Extraction: No Hx Cardiac Surgery: No Hx Lung Surgery: No Hx Breast Surgery: No Hx Breast Biopsy: No Hx Abdominal Surgery: No Hx Appendectomy: No Hx Cholecystectomy: No Hx Genitourinary Surgery: No Hx Section: No Hx Orthopedic Surgery: No Other Surgical History: tonsilectomy at age 14 - PPD History Previous Implant?: Yes Documented Results: Negative w/proof Implanted On Prior [facility] Admission?: Yes Date: 02/18/18 PPD to be Administered?: Yes - Reproductive History Patient is a Female of Child Bearing Age (11 -55 yrs old): No (male) - Smoking Cessation Smoking history: Current every day smoker Have you smoked in the past 12 months: Yes Aproximately how many cigarettes per day: 10 Hx Chewing Tobacco Use: No Initiated information on smoking cessation: Yes 'Breaking Loose' booklet given: 07/19/19 - Substance & Tx. History Hx Substance Use: Yes Substance Use Type: Alcohol, Cocaine, Marijuana Hx Substance Use Treatment: Yes ([facility]) - Substances abused Alcohol Substance route: Oral Frequency: Daily Amount used: 2-3 pints VODKA Age of first use: 16 Date of last use: 07/17/19 Marijuana/Hashish Substance route: Smoking Frequency: Daily Amount used: 1 bag Age of first use: 16 Date of last use: 07/17/19 Admission Physical Exam BHS - Vital Signs Vital Signs: Vital Signs - 24 hr 07/19/19 17:49 Temperature 97.2 F L Pulse Rate 84 Respiratory 16 Rate Blood Pressure 135/83 - Physical General Appearance: Yes: Within Normal Limits HEENTM: Yes: EOMI, Normal ENT Inspection, Normal Voice, ALYSON Respiratory: Yes: Lungs Clear, Normal Breath Sounds, No Respiratory Distress Neck: Yes: Supple Breast: Yes: Breast Exam Deferred Cardiology: Yes: Within Normal Limits Abdominal: Yes: Normal Bowel Sounds, Soft Genitourinary: Yes: Within Normal Limits Back: Yes: Normal Inspection Musculoskeletal: Yes: Within Normal Limits Extremities: Yes: Coldness Neurological: Yes: Within Normal Limits Integumentary: Yes: Warm Lymphatic: Yes: Within Normal Limits - Diagnostic (1) Alcohol dependence Current Visit: Yes Status: Chronic (2) Cocaine dependence Current Visit: Yes Status: Chronic (3) Depression Current Visit: Yes Status: Chronic Qualifiers: Depression Type: unspecified Qualified Code(s): F32.9 - Major depressive disorder, single episode, unspecified (4) Anxiety Current Visit: Yes Status: Chronic (5) Low back pain Current Visit: Yes Status: Chronic Qualifiers: Chronicity: chronic (6) Osteoarthritis Current Visit: Yes Status: Chronic (7) Cannabis dependence Current Visit: Yes Status: Chronic (8) Nicotine dependence Current Visit: Yes Status: Chronic Qualifiers: Nicotine product type: cigarettes Substance use status: uncomplicated Qualified Code(s): F17.210 - Nicotine dependence, cigarettes, uncomplicated Cleared for Admission S - Detox or Rehab [facility] Level of Care: Observation Bed Claeared for Rehab Admission: Yes Breathalyzer - Breathalyzer Breathalyzer: 0 Urine Drug Screen - Test Device Lot number: [id number] Expiration date: 03/17/21 - Control Is test valid?: Yes - Results Drug screen NEGATIVE: No Urine drug screen results: THC-Marijuana, BILL-Cocaine, BZO-Benzodiazepines Inpatient Rehab Admission - Rehab Decision to Admit Inpatient rehab admission?: Yes - Initial Determination Are CD services needed?: No Free of communicable disease: Yes Not in need of hospitalization: Yes - Rehab Admission Criteria Previous failed treatment: Yes Poor recovery environment: Yes Comorbidities: Yes Lacks judgement: No Patient is meeting Inpatient Rehab admission criteria:: Yes
[2019-07-19] MEDS ORDERED: P-EPHED 60MG/TRIPROLIDI 2.5MG TABLET PO PRN (20:56)
[2019-07-19] MEDS ORDERED: IBUPROFEN 400 MG TABLET (FP) PO PRN (20:56)
[2019-07-19] MEDS ORDERED: MAG HYDROX/AL HYDROX/SIMETH 30 ML UNIT-DOSE CUP PO PRN (20:56)
[2019-07-19] MEDS ORDERED: MENTHOL/PHENOL 1 EACH UD MM PRN (20:56)
[2019-07-19] MEDS ORDERED: ACETAMINOPHEN 325 MG TABLET (FP) PO PRN (20:56)
[2019-07-19] MEDS ORDERED: NICOTINE POLACRILEX 2 MG GUM BUC PRN (20:56)
[2019-07-19] MEDS ORDERED: LOPERAMIDE HCL 2 MG CAPSULE PO PRN (20:56)
[2019-07-19] MEDS ORDERED: MAGNESIUM HYDROX 2400MG/30ML ORAL SUSPENSION 30 ML CUP PO PRN (20:56)
[2019-07-19] MEDS ORDERED: guaiFENesin 200 MG/10 ML 10 ML UNIT-DOSE CUPS PO PRN (20:56)
[2019-07-19] MEDS ORDERED: MAGNESIUM CITRATE 300 ML BOTTLE PO PRN (20:56)
[2019-07-19] MEDS ORDERED: MELATONIN 5 MG TABLETS PO PRN (22:00)
[2019-07-19] MEDS ORDERED: THIAMINE HCL 100 MG TABLET (FP) PO SCH (22:00)
[2019-07-19] MEDS ORDERED: TUBERCULIN PPD 5 TU/0.1ML VIAL ID ONE (23:01)
[2019-07-20 06:28] VITALS: BP 142/89; PULSE 85; TEMP 98.8
--- NOTE | 2019-07-20 09:23 | EKG ---
Test Reason : Blood Pressure : / mmHG Vent. Rate : 075 BPM Atrial Rate : 075 BPM P-R Int : 124 ms QRS Dur : 080 ms QT Int : 406 ms P-R-T Axes : 046 -36 012 degrees QTc Int : 453 ms SINUS RHYTHM WITH PREMATURE ATRIAL COMPLEXES WITH ABERRANT CONDUCTION LEFT AXIS DEVIATION ABNORMAL ECG PREMATURE VENTRICULAR COMPLEXES Confirmed by MD Juice, Breezy ([id number]) on 07/20/2019 9:23:11 AM Referred By: Endy Alanis Confirmed By:Breezy Bose MD
[2019-07-20] MEDS ORDERED: PRENATAL VITAMINS W/ FOLIC ACID TABLET (FP) PO SCH (10:00)
[2019-07-20] MEDS ORDERED: NICOTINE 14 MG/24 HOURS TOPICAL PATCH TD SCH (10:00)
[2019-07-20] MEDS ORDERED: FLU VACCINE QUAD 60 MCG/0.5 ML (MDV 19-20) IM ONE (12:00)
--- NOTE | 2019-07-20 13:03 | DS ---
[facility] Rehab Discharge Summary - [facility] Rehab Discharge Summary Admission Date: 07/19/19 Discharge Date: 07/20/19 - History Pertinent Past History: Pt was admitted yesterday for rehab after completing detox at [facility]. Pt' s insurance will not cover his stay here and as pt cannot pay out of pocket pt has chosen to leave. Pt met with counselor. Pt will go to outpt program close to [address] Pt has all his meds in is property downstairs. - Discharge Physical Exam Vital Signs: Vital Signs Temperature 98.8 F 07/20/19 06:27 Pulse Rate 85 07/20/19 06:27 Respiratory Rate 18 07/20/19 06:27 Blood Pressure 142/89 07/20/19 06:27 O2 Sat by Pulse Oximetry (%) - Treatment Discharge Condition: Outpatient referral accepted - Medication Discharge Medications: Ambulatory Orders Naproxen [Naprosyn -] 500 mg PO BID 02/16/18 traZODone HCL [Trazodone HCl] 100 mg PO HS 02/17/18 Gabapentin [Neurontin -] 300 mg PO Q8H #90 capsule 02/19/18 Escitalopram Oxalate [Lexapro -] 10 mg PO DAILY 07/19/19 - Discharge Instructions Diet, activity, other medical instructions: Diet: Activity: Other medical instructions: - Follow-up Referral Minutes to complete discharge: 30 - AMA Did Patient Leave Against Medical Advice: No
[2019-07-20] MEDS ORDERED: PT OWN MED DRAWER 7, Y5N ONE (13:17)
--- NOTE | 2019-07-20 13:27 | CONSULT ---
[facility] Psychiatric Consult - Data Date of interview: 07/20/19 Psychiatric History: Patient could not be seen. He was discharged due to medical insurance related issues
== END 2019-07-20 13:20 | disposition home or self-care (01) | DRG 772 ==
LOC: YASAS 15:56 → Y3W 21:04
PROVIDERS: ADMIT Neuromusculoskeletal Medicine & OMM; ATTEND Neuromusculoskeletal Medicine & OMM
PROC: HZ42ZZZ Group Counseling for Substance Abuse Treatment, Cognitive-Behavioral (ICD-10-PCS; principal; 2019-07-19)
DX: F10.20 Alcohol dependence, uncomplicated (principal); F14.20 Cocaine dependence, uncomplicated; F12.20 Cannabis dependence, uncomplicated; F17.210 Nicotine dependence, cigarettes, uncomplicated; F41.9 Anxiety disorder, unspecified; F32.9 Major depressive disorder, single episode, unspecified; M19.90 Unspecified osteoarthritis, unspecified site; M54.5 Low back pain; G89.29 Other chronic pain
CPT/HCPCS: 93005; 93010; G0008; Q2036